=== PATIENT | female | born 1990 | race Caucasian/White ===

== ENCOUNTER 2022-07-21 14:20 | Outpatient (CLI) | payer OTHER, SELFPAY ==
[2022-07-21 18:10] LABS: Hepatitis B Surface Antigen* Negative (Negative)
[2022-07-21 18:19] LABS: HIV 1/2/P24 Combo Screen* Negative (Negative)
[2022-07-21 18:28] LABS: Hepatitis C Virus Antibody* Negative (Negative)
[2022-07-21 18:46] LABS: Chlamydia DNA Amplified* NOT DETECTED (No Detected); GC DNA Amplified* NOT DETECTED (No Detected)
[2022-07-23 17:15] LABS: Rubella Antibody IgG 14.9 IU/mL
[2022-07-23 18:37] LABS: Rapid Plasma Reagin (RPR) Non Reactive (Non Reactive)
== END 2022-07-21 14:21 | disposition home or self-care (01) ==
PROVIDERS: Visit Provider Advanced Practice Midwife
DX: Z34.91 Encounter for supervision of normal pregnancy, unspecified, first trimester (principal); Z3A.09 9 weeks gestation of pregnancy
CPT/HCPCS: 76817; 86592; 86703; 86762; 86787; 86803; 86850; 86900; 86901; 87086; 87340; 87491; 87591

== ENCOUNTER 2022-08-15 09:32 | Observation (INO) | payer OTHER, SELFPAY ==
[2022-08-15] VITALS (21 sets, daily range): BP systolic 108–129; BP diastolic 55–82; PULSE 67–106; RESP 16–18; TEMP 36.7–37.2; O2SAT 97–100; BMI 24.0; BMI 23.7
[2022-08-15 10:05] LABS: Appearance Urine Clear (Clear); Bilirubin Urine Negative (Negative); Blood Urine 2+ (Negative); Color Urine Yellow (Yellow); Glucose Urine Negative (Negative); Ketones Urine 1+ (Negative); Leukocyte Esterase Urine Negative (Negative); Nitrite Urine Negative (Negative); Protein Urine Negative (Negative)
--- NOTE | 2022-08-15 10:14 | ED.ABDPAIN ---
HPI - Abdominal Pain General Time Seen by Provider: 10:15 Date Seen: 08/15/22 Chief Complaint: Abdominal Pain Stated Complaint: 14 wks /lower right abdominal pain Time Seen by Provider: 08/15/22 10:14 Source: patient, RN notes reviewed and old records reviewed Mode of arrival: ambulatory Limitations: no limitations History of Present Illness HPI narrative: Patient is a very pleasant 32-year-old female with history of rheumatoid arthritis, prednisone p.r.n. as well as history of PE who comes to the emergency room with right lower quadrant pain. Patient is approximately 14 weeks with an EDC of 02/19/2023 and an LMP of 05/15/2022. Patient notes the onset of sharp discomfort in her right lower quadrant last evening. It was associated with some nausea and lightheadedness but no fever or chills. Patient notes that she has been struggling with some constipation but had a normal bowel movement yesterday. She denies any recent trauma or falls and has not had any ovarian cysts in the past. She denies urinary tract symptoms. She notes pain improves when standing up and is worse when lying down. She notes some spotting last evening and shows me a mucus see bloody item on a piece of toilet paper. She has not had any bleeding today. She denies fever or chills cough cold or congestion. She has not taken anything for pain at this point. Patient notes radiation of the discomfort into her back but not down her legs. Related Data Home Medications Medication Instructions Recorded Confirmed prednisolone sodium phosphate 10 10 mg PO .PRN 07/21/22 08/15/22 mg disintegrating tablet Previous Rx's Medication Instructions Recorded enoxaparin 40 mg/0.4 mL 40 mg (0.4 mL) subcut Q24H #60 07/28/22 subcutaneous syringe syringes Allergies Allergy/AdvReac Type Severity Reaction Status Date / Time No Known Drug Allergies Allergy Verified 08/15/22 13:13 Review of Systems Status of ROS Reports: 10 or more systems reviewed and unremarkable except as noted in History and below Const Denies: fever or fatigue ENMT Denies: throat pain Cardio Denies: chest pain, edema, swelling of feet/ankles or shortness of breath with exertion Resp Denies: shortness of breath or cough GI Reports: abdominal pain (Right lower quadrant), nausea and constipation; Denies: vomiting or diarrhea Denies: painful urination, urinary frequency or urinary urgency Musculo Reports: back pain (Radiation) Neuro Denies: headache Endo Denies: fatigue PFSH PFSH Medical History History of abnormal cervical Papanicolaou smear Pulmonary embolism Surgical History H/O breast augmentation Family History Mother High blood pressure Depression Father High blood pressure Diabetes Rheumatoid arteritis Social History Are you following a diet prescribed by a doctor: No Are you following a special diet: No Highest level of school completed/degree received: Master's degree Physical activity type: other Physical activity type details: volleyball Smoking Status: Never smoker Second hand tobacco smoke exposure: No Non-prescribed substance use: denies use Caffeine: Yes (up to 2 cups of coffee a day) Little interest or pleasure in doing things: not at all Feeling down, depressed, or hopeless: not at all Exam Narrative: Exam Narrative: Patient is alert and oriented. Nontoxic in appearance. EOM is full. Neck is supple. Oral cavity with moist mucous membranes. Heart is with regular rate and rhythm and lungs are clear in all lung guerra. No tenderness with percussion over the CVA bilaterally or lower back Abdomen is soft nontender there is no rebound tenderness. Movement of the right leg including internal external rotation as well as hip flexion yields no discomfort. Const: Vital Signs, click to edit/add: Vital Signs - 24 hr 08/15/22 09:50 08/15/22 09:54 08/15/22 09:55 Temperature 98.6 F Pulse Rate 106 H 93 Pulse Rate [Right Pulse Oximeter] 95 Respiratory Rate 18 Blood Pressure 117/82 Blood Pressure [Ri ght Upper Arm] 123/68 Pulse Oximetry 99 99 97 Oxygen Delivery Me thod Room Air 08/15/22 09:56 08/15/22 10:00 08/15/22 10:02 Temperature Pulse Rate 91 79 75 Pulse Rate [Right Pulse Oximeter] Respiratory Rate Blood Pressure 123/68 112/74 Blood Pressure [Ri ght Upper Arm] Pulse Oximetry 100 98 99 Oxygen Delivery Me thod 08/15/22 10:03 08/15/22 10:30 08/15/22 10:31 Temperature Pulse Rate 78 77 80 Pulse Rate [Right Pulse Oximeter] Respiratory Rate Blood Pressure 115/74 Blood Pressure [Ri ght Upper Arm] Pulse Oximetry 98 99 99 Oxygen Delivery Me thod 08/15/22 10:32 08/15/22 12:50 08/15/22 12:51 Temperature Pulse Rate 70 75 80 Pulse Rate [Right Pulse Oximeter] Respiratory Rate Blood Pressure 122/74 Blood Pressure [Ri ght Upper Arm] Pulse Oximetry 99 98 97 Oxygen Delivery Me thod Documenting provider has reviewed patient's vital signs: yes Course Course Hospital Course: At this time differential diagnosis includes but is not limited to ectopic , miscarriage, UTI, ureteral colic, nephrolithiasis, appendicitis, colitis, ovarian cyst, ovarian torsion, round ligament pain. Will place an IV give 1 L of normal saline. Patient has been receptive to morphine 2 mg and Zofran 4 mg for discomfort and nausea. Will obtain pelvic ultrasound as well as CBC, comprehensive panel, CRP, urinalysis, amylase, lipase. Reevaluation(s) Reevaluation #1: Patient noted to have some mild relief with morphine. Unfortunately I do share with patient and her that the ultrasound does show a demise measuring approximately 10 weeks. This is confirmed by Radiology. Consultations Consultation #1: I have concerns regarding leukocytosis greater than 18,000. Certainly obstetrical patients will have a physiological leukocytosis but this seems markedly high. This is also associated with a CRP of 2.7. I had the pleasure of speaking with VALERIE Marques. She does agree that these values do not match a miscarriage. Would proceed with CT of the abdomen which I have now ordered. I do speak to patient and her in regards to my worries that there is further concern in regards to her discomfort. I do order Dilaudid 0.5 mg IV at this time but patient declines. Vital Signs Vital signs: Initial Vital Signs Temperature 98.6 F 08/15/22 09:50 Temperature Source Temporal Artery Scan 08/15/22 09:50 Pulse Rate 95 08/15/22 09:50 Respiratory Rate 18 08/15/22 09:50 Blood Pressure 123/68 08/15/22 09:50 Blood Pressure Mean 86 08/15/22 09:50 Blood Pressure Position Sitting 08/15/22 09:50 Pulse Oximetry 99 08/15/22 09:50 Oxygen Delivery Method 08/15/22 09:50 Vital Signs Temperature 98.6 F 08/15/22 09:50 Pulse Rate 95 08/15/22 09:50 Respiratory Rate 18 08/15/22 09:50 Blood Pressure 123/68 08/15/22 09:50 Pulse Oximetry 99 08/15/22 09:50 Oxygen Delivery Method 08/15/22 09:50 Temperature 98.6 F 08/15/22 09:50 Pulse Rate 80 08/15/22 12:51 Respiratory Rate 18 08/15/22 09:50 Blood Pressure 122/74 08/15/22 12:50 Pulse Oximetry 97 08/15/22 12:51 Oxygen Delivery Method 08/15/22 09:50 MDM - Abdominal Pain MDM Narrative Medical decision making narrative: 1. demise-fetus measuring 10+ weeks but patient is technically 14 weeks at this point. She did have a small amount of blood last night and earlier with the ultrasound but not has not passed fetus at this time. OBGYN consults and does speak to patient about a D&C verses admission for Cytotec placement. Patient decides on the latter. Therefore have admitted her to outpatient observation to the OB floor under the care of 2. Abdominal pain -improved with small amount of morphine. Patient declines any more pain medication. 3. History of PE at the age of 16-unknown cause per patient. She denies a history of lupus or other autoimmune diseases. However does have a history of rheumatoid arthritis. 4. Disposition-admission to OB floor. Medical Records Attestation: I reviewed the patient's medical records. Lab Data Attestation: I reviewed the patient's lab results. Labs: Lab Results 08/15/22 08/15/22 08/15/22 Range/Units 09:58 11:40 11:40 WBC 18.11 H (4.50-11.00) K/uL RBC 4.18 (4.00-5.20) m/uL Hgb 12.7 (12.0-16.0) gm/dL Hct 38.1 (33.0-51.0) % MCV 91 (80-100) fL MCH 30 (26-34) pg MCHC 33 (32-36) gm/dL RDW Coeff of Garth 13.1 (11.5-15.5) % Plt Count 297 (140-440) K/uL Neut % (Auto) 85.4 H (42.0-72.0) % Lymph % (Auto) 8.6 L (20-44) % Motley % (Auto) 5.3 (0.0-11.0) % Eos % (Auto) 0.3 (0.0-7.0) % Baso % (Auto) 0.2 (0.0-3.0) % Neut # (Auto) 15.50 H (1.7-7.0) K/uL Lymph # (Auto) 1.60 (0.90-2.90) K/uL Motley # (Auto) 1.00 H (0.00-0.90) K/UL Eos # (Auto) 0.10 (0.00-0.50) K/uL Baso # (Auto) 0.00 (0.00-0.30) K/uL Abs Immat Gran (auto) 0.00 (0.00-0.30) K/uL Imm/Tot Granulo (auto) 0.2 % Sodium 134 L (135-149) mmol/L Potassium 3.7 (3.6-5.1) mmol/L Chloride 102 (96-114) mmol/L Carbon Dioxide 23 (20-32) mmol/L BUN 11 (5-24) mg/dL Creatinine 0.5 (0.5-1.5) mg/dL Estimated Creat Clear 178.87 Estimated GFR 127 ml/min Glucose 96 (60-115) mg/dL Calcium 8.8 (8.4-10.6) mg/dL Total Bilirubin 0.6 (0.1-1.5) mg/dL AST 20 (12-35) U/L ALT 14 (4-35) U/L Alkaline Phosphatase 46 (40-150) U/L C-Reactive Protein 2.7 H (0.5-1.0) mg/dL Total Protein 7.5 (6.0-8.3) g/dL Albumin 4.5 (3.3-5.0) g/dL Amylase 61 (18-89) U/L Lipase 35 (23-300) U/L Urine Color Yellow (Yellow) Urine Appearance Clear (Clear) Urine pH 7.0 (5.0-8.5) Ur Specific [place] 1.020 (1.000-1.030) Urine Protein Negative (Negative) Urine Glucose (UA) Negative (Negative) Urine Ketones 1+ A (Negative) Urine Blood 2+ A (Negative) Urine Nitrite Negative (Negative) Urine Bilirubin Negative (Negative) Urine Urobilinogen 1.0 (0.2-1.0) Ur Leukocyte Esterase Negative (Negative) Urine RBC 0-2 (0-2) Urine WBC 0-2 (0-5) Ur Squamous Epith Cells Few (None-Few) Urine Bacteria Few A (None) SARS-CoV-2 (PCR) (Negative) 08/15/22 Range/Units 13:01 WBC (4.50-11.00) K/uL RBC (4.00-5.20) m/uL Hgb (12.0-16.0) gm/dL Hct (33.0-51.0) % MCV (80-100) fL MCH (26-34) pg MCHC (32-36) gm/dL RDW Coeff of Garth (11.5-15.5) % Plt Count (140-440) K/uL Neut % (Auto) (42.0-72.0) % Lymph % (Auto) (20-44) % Motley % (Auto) (0.0-11.0) % Eos % (Auto) (0.0-7.0) % Baso % (Auto) (0.0-3.0) % Neut # (Auto) (1.7-7.0) K/uL Lymph # (Auto) (0.90-2.90) K/uL Motley # (Auto) (0.00-0.90) K/UL Eos # (Auto) (0.00-0.50) K/uL Baso # (Auto) (0.00-0.30) K/uL Abs Immat Gran (auto) (0.00-0.30) K/uL Imm/Tot Granulo (auto) % Sodium (135-149) mmol/L Potassium (3.6-5.1) mmol/L Chloride (96-114) mmol/L Carbon Dioxide (20-32) mmol/L BUN (5-24) mg/dL Creatinine (0.5-1.5) mg/dL Estimated Creat Clear Estimated GFR ml/min Glucose (60-115) mg/dL Calcium (8.4-10.6) mg/dL Total Bilirubin (0.1-1.5) mg/dL AST (12-35) U/L ALT (4-35) U/L Alkaline Phosphatase (40-150) U/L C-Reactive Protein (0.5-1.0) mg/dL Total Protein (6.0-8.3) g/dL Albumin (3.3-5.0) g/dL Amylase (18-89) U/L Lipase (23-300) U/L Urine Color (Yellow) Urine Appearance (Clear) Urine pH (5.0-8.5) Ur Specific [place] (1.000-1.030) Urine Protein (Negative) Urine Glucose (UA) (Negative) Urine Ketones (Negative) Urine Blood (Negative) Urine Nitrite (Negative) Urine Bilirubin (Negative) Urine Urobilinogen (0.2-1.0) Ur Leukocyte Esterase (Negative) Urine RBC (0-2) Urine WBC (0-5) Ur Squamous Epith Cells (None-Few) Urine Bacteria (None) SARS-CoV-2 (PCR) Negative SARS-CoV-2 (Negative) Imaging Data CT scan - abdomen: Attestation: I have reviewed the pertinent imaging results. My impression: Increased stool throughout abdomen. Questionable stranding around the area of the cecum. Radiologist's impression: The lung bases are clear. The liver is enlarged with mild hepatic steatosis and hepatomegaly. There is no focal abnormality. The portal vein is patent. The gallbladder is unremarkable without evidence of radiopaque calculus. There is no significant common biliary ductal dilatation or abrupt cut off. The spleen is normal in enhancement and size. The stomach and duodenum are grossly unremarkable. The pancreas is normal in enhancement without significant atrophy. The adrenal glands are unremarkable. There are bilateral extrarenal pelves with demonstration of mild prominence of the bilateral collecting systems without evidence of radiopaque calculus. There is moderate stool seen throughout the colon with minimal distal colonic diverticulosis without evidence of diverticulitis. The appendix is unremarkable. There is no significant mesenteric, retroperitoneal, or pelvic sidewall lymph nodes. The aorta is nonaneurysmal. There is no significant atherosclerotic disease appreciated. There is an enlarged uterus with demonstration of a gestational sac. Known pole is not well visualized. There is a moderately heterogeneous appearance of the myometrium. Engorged pelvic vasculature is appreciated likely representing a component of pelvic congestion. There is no free fluid or free air. The anterior abdominal wall is intact without significant hernias. The lumbar vertebral body heights are grossly maintained with minimal endplate Schmorl`s defects. There is mild straightening of the normal lumbar lordosis without evidence of significant spondylolisthesis. Impression: Normal appendix. Moderate stool seen throughout the colon. Bilateral extrarenal pelves with trace prominence of the collecting system without evidence of obstructive calculus. Moderately enlarged uterus commensurate with history of and known intrauterine demise. No evidence of acute pelvic abnormality. Moderately engorged pelvic veins which may represent sequela of and/or a component of pelvic congestion syndrome. Otherwise, no definite acute intra-abdominal abnormalities appreciated. Pelvic ultrasound: Attestation: I have reviewed the pertinent imaging results. Radiologist's impression: Intrauterine gestation with crown-rump length measuring 3. 7 cm which would correspond to 10 weeks 4 days. No cardiac activity detected one previously demonstrated. Gestational sac located within the lower uterine segment. Anterior fibroid measuring 4.1 x 2.5 x 3.7 centimeters. Right ovary measuring 3 x 2.1 x 2.7 centimeters left ovary measures 2 x 1.1 centimeters and appears unremarkable adjacent mildly complex cystic lesion within the right adnexum measuring 1.5 x 1.1 x 0.9 centimeter to be related to parovarian cyst IMPRESSION: Intrauterine gestation with crown-rump length measuring 3.7 centimeters which would correspond to 10 weeks 4 days. No cardiac activity detected when previously demonstrated. The gestational sac is located in the lower uterine segment. Findings consistent with demise. 1.5 x 1.1 x 0.9 centimeter complex right adnexal lesion could be related to paraovarian complex cyst. This could be followed up in 8-12 weeks. Discharge Plan Discharge Clinical Impression: demise before 20 weeks with retention of fetus, Abdominal pain Patient Disposition: Admitted As Inpatient Condition: Improved
--- NOTE | 2022-08-15 10:26 | CRLHL7_ITS ---
For Patients: As a result of the Century Cures Act, medical imaging exams and procedure reports are released immediately into your electronic medical record. You may view this report before your referring provider. If you have questions, please contact your health care provider. INDICATION: Fourteen weeks gestation right lower quadrant pain Comparison ultrasound 07/22/2022 TECHNIQUE: Real-time olivia-scale imaging of the pelvis was performed. FINDINGS: Intrauterine gestation with crown-rump length measuring 3. 7 cm which would correspond to 10 weeks 4 days. No cardiac activity detected one previously demonstrated. Gestational sac located within the lower uterine segment. Anterior fibroid measuring 4.1 x 2.5 x 3.7 centimeters. Right ovary measuring 3 x 2.1 x 2.7 centimeters left ovary measures 2 x 1.1 centimeters and appears unremarkable adjacent mildly complex cystic lesion within the right adnexum measuring 1.5 x 1.1 x 0.9 centimeter to be related to parovarian cyst IMPRESSION: Intrauterine gestation with crown-rump length measuring 3.7 centimeters which would correspond to 10 weeks 4 days. No cardiac activity detected when previously demonstrated. The gestational sac is located in the lower uterine segment. Findings consistent with demise. 1.5 x 1.1 x 0.9 centimeter complex right adnexal lesion could be related to paraovarian complex cyst. This could be followed up in 8-12 weeks. Dictated by Rosa Gutiérrez MD @ 08/15/2022 11:58:50 AM (Electronically Signed)
[2022-08-15 10:29] LABS: Bacteria Urine Few; RBC Urine 0-2 (0-2); Squamous Epithelial Cell Urine Few (None-Few); WBC Urine 0-2 (0-5)
[2022-08-15] MEDS: 0.9 % SODIUM CHLORIDE 1000 ml 1,000 ML IV (11:44)
[2022-08-15] MEDS: ONDANSETRON 2 MG/ML inj 4 MG IVP (11:44)
[2022-08-15] MEDS: MORPHINE 2 MG/ML inj IVP (11:46)
[2022-08-15 11:56] LABS: Basophils Percent Auto 0.2 % (0.0-3.0); Eosinophils Percent Auto 0.3 % (0.0-7.0); Hematocrit 38.1 % (33.0-51.0); Hemoglobin* 12.7 gm/dL (12.0-16.0); Immature Granulocytes Pct Auto 0.2 %; Lymphocytes Percent Auto 8.6 % (20-44); Mean Corpuscular HGB Conc 33 gm/dL (32-36); Mean Corpuscular Hemoglobin 30 pg (26-34); Mean Corpuscular Volume 91 fL (80-100); Monocytes Percent Auto 5.3 % (0.0-11.0); Neutrophils Percent Auto 85.4 % (42.0-72.0); Platelet Count* 297 K/uL (140-440); RDW Coefficient of Variation % 13.1 % (11.5-15.5); Red Blood Count 4.18 m/uL (4.00-5.20); White Blood Count* 18.11 K/uL (4.50-11.00)
[2022-08-15 12:00] LABS: Slide Review Reflex No
[2022-08-15 12:13] LABS: Albumin* 4.5 g/dL (3.3-5.0); Chloride* 102 mmol/L (96-114)
[2022-08-15 12:14] LABS: Potassium* 3.7 mmol/L (3.6-5.1); Sodium* 134 mmol/L (135-149)
[2022-08-15 12:15] LABS: Amylase* 61 U/L (18-89)
[2022-08-15 12:16] LABS: Alkaline Phosphatase* 46 U/L (40-150); Aspartate Amino Transferase* 20 U/L (12-35); Bilirubin Total* 0.6 mg/dL (0.1-1.5); Blood Urea Nitrogen* 11 mg/dL (5-24); Carbon Dioxide* 23 mmol/L (20-32); Creatinine* 0.5 mg/dL (0.5-1.5); Est. Creatinine Clearance* 178.87; Estimated Glomerular Filt Rate 127 ml/min; Lipase* 35 U/L (23-300); Total Protein* 7.5 g/dL (6.0-8.3)
[2022-08-15 12:17] LABS: Alanine Aminotransferase* 14 U/L (4-35); Calcium* 8.8 mg/dL (8.4-10.6); Glucose* 96 mg/dL (60-115)
[2022-08-15 12:19] LABS: C Reactive Protein* 2.7 mg/dL (0.5-1.0)
--- NOTE | 2022-08-15 12:41 | CRLHL7_ITS ---
For Patients: As a result of the 21st Century Cures Act, medical imaging exams and procedure reports are released immediately into your electronic medical record. You may view this report before your referring provider. If you have questions, please contact your health care provider. Indication: Right lower quadrant pain, demise found today, 14 weeks Technique: Volumetric multidetector CT images of the abdomen and pelvis were obtained after the administration of intravenous contrast. 84 cc Isovue 370 low osmolar intravenous contrast Comparison: CT abdomen and pelvis March 04, 2019 Findings: The lung bases are clear. The liver is enlarged with mild hepatic steatosis and hepatomegaly. There is no focal abnormality. The portal vein is patent. The gallbladder is unremarkable without evidence of radiopaque calculus. There is no significant common biliary ductal dilatation or abrupt cut off. The spleen is normal in enhancement and size. The stomach and duodenum are grossly unremarkable. The pancreas is normal in enhancement without significant atrophy. The adrenal glands are unremarkable. There are bilateral extrarenal pelves with demonstration of mild prominence of the bilateral collecting systems without evidence of radiopaque calculus. There is moderate stool seen throughout the colon with minimal distal colonic diverticulosis without evidence of diverticulitis. The appendix is unremarkable. There is no significant mesenteric, retroperitoneal, or pelvic sidewall lymph nodes. The aorta is nonaneurysmal. There is no significant atherosclerotic disease appreciated. There is an enlarged uterus with demonstration of a gestational sac. Known pole is not well visualized. There is a moderately heterogeneous appearance of the myometrium. Engorged pelvic vasculature is appreciated likely representing a component of pelvic congestion. There is no free fluid or free air. The anterior abdominal wall is intact without significant hernias. The lumbar vertebral body heights are grossly maintained with minimal endplate Schmorl`s defects. There is mild straightening of the normal lumbar lordosis without evidence of significant spondylolisthesis. Impression: Normal appendix. Moderate stool seen throughout the colon. Bilateral extrarenal pelves with trace prominence of the collecting system without evidence of obstructive calculus. Moderately enlarged uterus commensurate with history of and known intrauterine demise. No evidence of acute pelvic abnormality. Moderately engorged pelvic veins which may represent sequela of and/or a component of pelvic congestion syndrome. Otherwise, no definite acute intra-abdominal abnormalities appreciated. Please note that all CT scans at this facility use dose modulation, iterative reconstruction, and/or weight-based dosing when appropriate to reduce radiation dose to as low as reasonably achievable. Dictated by Marcellus Urbina MD @ 08/15/2022 2:36:43 PM (Electronically Signed)
[2022-08-15 14:22] LABS: SARS PCR* Negative SARS-CoV-2 (Negative)
[2022-08-15 16:57] LABS: INR 1.05 (0.91-1.10); Prothrombin Time 14.3 Seconds
[2022-08-15 16:58] LABS: Fibrinogen* 545 mg/dL (200-450); Partial Thromboplastin Time* 29 Seconds (23-33)
[2022-08-15] MEDS: PROCHLORPERAZINE 10 MG TABLET 5 MG PO ×2 (17:06→23:18)
[2022-08-15] MEDS: hydrOXYzine pamoate 25 MG CAPSULE 100 MG PO (17:07)
[2022-08-15] MEDS: MORPHINE 10 MG/ML inj IM ×2 (17:07→23:18)
[2022-08-15] MEDS: miSOPROStoL 200 MCG TABLET 400 MCG VAGINAL ×2 (17:08→20:13)
[2022-08-15] MEDS: SODIUM CHLORIDE 0.9 % (FLUSH) 10 ML SYRINGE IVF (17:09)
--- NOTE | 2022-08-15 18:18 | P.OBCN_ITS ---
OB - CN: HPI Date of Consult Time Seen by Provider: 14:00 Date Seen: 08/15/22 Patient: [facility] Patient Consult date: 08/15/22 Requesting Physician: Shila Perez MD Primary Care Provider: Not a Local Provider Consult Narrative Narrative: The patient is a 32 year old G 2 P 1011 at 14 weeks 2 days admitted to [facility] on 08/15/22 for 2nd trimester demise. She presented to the emergency department today due to onset of sharp right lower quadrant pain starting last night, has not improved. She has associated nausea, no vomiting. She denies subjective fever. However, she endorses some chills that she has been experiencing on and off for the last day. She does endorses increased vaginal discharge that is brownish in color. She also notes some uterine cramping as well. While being evaluated in the emergency department, demise is diagnosed and I was consulted by Dr. Sanchez. Patient had a viability scan on 07/21/2022. At that time she had a live IUP measuring 10 weeks 5 days, with cardiac rate noted to be 166 beats per minute. Today, on her transvaginal ultrasound, intrauterine gestation with crown-rump length measuring 3.7 cm corresponding with 10 weeks 4 days noted. However, no cardiac activity detected when previously demonstrated. The gestational sac is located lower uterine segment. Ultrasound finding diagnostic for demise. Of note, patient has white blood cell count of 18k and elevated CRP of 2.7. Due to the unusual distribution of patient's pain, elevated white count and CRP, CT AP was done to rule out appendicitis. Normal appendix on CT scan. Moderate stool seen throughout the colon. Counseling We discussed early loss. Early loss is defined as a nonviable, intrauterine with either an empty gestational sac or a gestational sac containing an embryo or fetus without heart activity within the first 12 6/7 weeks of gestation. I know that she is 14 weeks and 2 days, however, crown-rump length is essentially the same as her 1st OB ultrasound. I suspect that she had a miscarriage around that time and patient has been asymptomatic until now. Patient agrees with this assessment as she has been starting to feel uterine cramping and having abnormal vaginal discharge. We briefly spoke about incidence of early loss. It is common, 10% of all clinically recognized pregnancies. Rate increases to 20% at age 35, 40% by 40 y/o and 80% at the age of 45 y/o. Approximately 50% of all cases of early loss are due to chromosomal. Approximately 80% of all cases of loss occur within the first trimester. The most common risk factors identified among women who have experienced early loss are advanced maternal age and a prior early loss. We discussed the management options for early loss: 1. Expectant management: With adequate time (up to 8 weeks), expectant management is successful in achieving complete expulsion in approximately 80% of women. This is especially successful for patients who are currently having an incomplete . Patient was initially very interested in expectant management as she wants to minimize intervention. However, I discussed with patient that she most likely has been expectantly managing this miscarriage unknowingly for approximately 4 weeks now. Additionally, I suspect that she has an infection brewing due to her symptomatology, elevated white count, and elevated CRP. Thus, I would not be comfortable sending her home to wait, possibly weeks, to pass the . It is possible that her body is trying to pass the currently, given her symptoms. It is reassuring that she has not developed a fever yet. 2. Medical management: Compared with expectant management, medical management of decreases the time to expulsion and increases the rate of complete expulsion without the need for surgical intervention. Patient is most interested in this treatment and it's what I would recommend to help speed up expulsion as well. 3. Surgical management: This is the primary mode of treatment if patient presents in an emergent situation which include hemorrhage (excessive/life threatening bleeding) or infection. It is also used if the previous 2 options fail. Surgical management can be the initial primary treatment as well. Patients who desire this option are those wanting expedited management and minimize risk of retained products of conception or need for further treatment. I reviewed how this procedure is performed. This is done in the operating room with conscious sedation and paracervical block (usually). The cervix is dilated open, a plastic curette is advanced into the uterus and connected to a vacuum. The vacuum then pulls the out of the uterus. All tissue removed from the uterus is sent to the lab for testing to verify that tissue was obtained. I do not recommend cytogenetic testing unless the patient has had more than 1 miscarriage. Ultrasound guidance is not required. Risks with a suction curettage include injury to cervix or uterus 1/400-1/500. Infection in the uterus resulting in endometritis 1/400-1/500. She will receive antibiotics in the IV in the operating room prior to the procedure to prevent infection. Chance of Asherman syndrome resulting in inability to conceive a in the future: 10/2499. Chance of anesthesia complications are extremely rare: Less than 1/100,000 especially with negative personal or family history of anesthesia issues. Expected recovery: Mild cramping after miscarriage/surgery usually controlled with [id number] extra-strength Tylenol and ibuprofen. Only restriction for activity postoperatively/after a miscarriage is nothing vaginally for 2 weeks. She should expect to have some bleeding for 2-4 weeks after surgery. If she continues to have bleeding past 4 weeks I would recommend a follow-up ultrasound to assess for retained products of conception. She would like to avoid surgical management, if possible. All of her questions were answered. After reviewing risk, benefits and alternatives, patients desires to proceed with inpatient admission and misoprostol protocol. She's hoping to pass everything vaginally and really wants to reduce her risk of needing a D&C. Given size of the , I do think she has a good chance of passing everything vaginally. Patient's blood type: A+, Rhogam not needed. History History 2 Elective abortions 0 Para 1 Spontaneous abortions 0 Hx # Term Pregnancies 1 Ectopic pregnancies 0 Hx # Pregnancies 0 Multiple births 0 Number of Living Children 1 Past Pregnancies Del. Date GA/Weeks Outcome Route wt Inf Gender Labor Lgth Anesthesia Location Provider Compli 02/05/21 38 live - full term vaginal delivery 2.92 kg Female 4 hrs 20 min epidural [facility] Medical History (Updated 08/15/22 @ 18:45 by Shila Perez MD) Elevated C-reactive protein (CRP) History of abnormal cervical Papanicolaou smear Pulmonary embolism Surgical History H/O breast augmentation Family History Mother High blood pressure Depression Father High blood pressure Diabetes Rheumatoid arteritis Social History Are you following a diet prescribed by a doctor: No Are you following a special diet: No Highest level of school completed/degree received: Master's degree Physical activity type: other Physical activity type details: volleyball Smoking Status: Never smoker Second hand tobacco smoke exposure: No Non-prescribed substance use: denies use Caffeine: Yes (up to 2 cups of coffee a day) Little interest or pleasure in doing things: not at all Feeling down, depressed, or hopeless: not at all Meds Home Medications and Allergies Home Medications Medication Instructions Recorded Confirmed Type prednisolone sodium phosphate 10 10 mg PO .PRN 07/21/22 08/15/22 History mg disintegrating tablet Allergies Allergy/AdvReac Type Severity Reaction Status Date / Time No Known Drug Allergies Allergy Verified 08/15/22 13:13 OB - H&P: Exam Physical Exam: Vital signs: Temp Pulse Resp BP Pulse Ox O2 Del Method 98.9 F 75 16 129/79 100 08/15/22 17:20 08/15/22 17:18 08/15/22 17:20 08/15/22 17:18 08/15/22 15:30 08/15/22 09:50 Narrative: Physical exam: General: Patient is very tearful, appropriately so Psych: Alert and oriented x3, full affect HEENT: Normocephalic, atraumatic Neck: No cervical adenopathy, no thyromegaly Heart: Regular rate and rhythm, no murmur rub or gallop Lungs: Clear to auscultation bilaterally Abdomen: fundal tenderness. She states that this was where she's feeling most of the cramping. No rebound or guarding OB - Results Labs Labs: Short CBC 08/15/22 Range/Units 11:40 WBC 18.11 H (4.50-11.00) K/uL Hgb 12.7 (12.0-16.0) gm/dL Hct 38.1 (33.0-51.0) % Plt Count 297 (140-440) K/uL BMP 08/15/22 11:40 Sodium 134 L Potassium 3.7 Chloride 102 Carbon Dioxide 23 BUN 11 Creatinine 0.5 Glucose 96 Calcium 8.8 Liver Function 08/15/22 Range/Units 11:40 Total Bilirubin 0.6 (0.1-1.5) mg/dL AST 20 (12-35) U/L ALT 14 (4-35) U/L Alkaline Phosphatase 46 (40-150) U/L Albumin 4.5 (3.3-5.0) g/dL Urine 08/15/22 Range/Units 09:58 Urine Color Yellow (Yellow) Urine Appearance Clear (Clear) Urine pH 7.0 (5.0-8.5) Ur Specific [place] 1.020 (1.000-1.030) Urine Protein Negative (Negative) Urine Glucose (UA) Negative (Negative) OB - CN: A/P Assessment and Plan (1) demise before 20 weeks with retention of fetus: Status: Acute (2) Abdominal pain: Status: Acute (3) Elevated WBC count: Status: Acute Plan - Admit to inpatient for misoprostol protocol for management of demise. Currently stable with scant vaginal bleeding. - Misoprostol 400 mcg Q3H ordered. Max dose of 5. - Will give Gent/Clinda as I suspect early infection
[2022-08-15] MEDS: CLINDAMYCIN 900 MG/50 ML-D5W IVPB (18:34)
[2022-08-15 18:54] LABS: Amphetamine Screen Urine Negative (Negative); Barbiturate Screen Urine Negative (Negative); Benzodiazepines Screen Urine Negative (Negative); Cannabinoid Screen Urine Negative (Negative); Cocaine Screen Urine Negative (Negative); Methadone Screen Urine Negative (Negative); Methamphetamines Screen Urine Negative (Negative); Oxycodone Screen Urine Negative (Negative); Phencyclidine Screen Urine Negative (Negative); Tricyclic Antidepressant Urine Negative (Negative)
[2022-08-15 19:01] LABS: Opiate Screen Urine POSITIVE (Negative)
[2022-08-16] MEDS: CLINDAMYCIN 900 MG/50 ML-D5W IVPB (02:27)
[2022-08-16 02:31] VITALS: RESP 16; TEMP 36.9
[2022-08-16 02:32] VITALS: BP 105/58; PULSE 81
[2022-08-16 06:21] VITALS: BP 103/62; PULSE 71; RESP 16; TEMP 36.9
[2022-08-16 06:23] VITALS: PULSE 83; O2SAT 99
[2022-08-16] MEDS: PROCHLORPERAZINE 10 MG TABLET 5 MG PO (06:36)
[2022-08-16] MEDS: LACTATED RINGERS 1000 ML IV (06:45)
[2022-08-16] MEDS: ACETAMINOPHEN 500 MG TABLET 1000 MG PO (08:10)
[2022-08-16 08:13] LABS: Basophils Percent Auto 0.2 % (0.0-3.0); Eosinophils Percent Auto 0.9 % (0.0-7.0); Hematocrit 29.1 % (33.0-51.0); Hemoglobin* 9.8 gm/dL (12.0-16.0); Immature Granulocytes Pct Auto 0.2 %; Lymphocytes Percent Auto 7.8 % (20-44); Mean Corpuscular HGB Conc 34 gm/dL (32-36); Mean Corpuscular Hemoglobin 31 pg (26-34); Mean Corpuscular Volume 93 fL (80-100); Monocytes Percent Auto 5.8 % (0.0-11.0); Neutrophils Percent Auto 85.1 % (42.0-72.0); Platelet Count* 271 K/uL (140-440); RDW Coefficient of Variation % 13.2 % (11.5-15.5); Red Blood Count 3.13 m/uL (4.00-5.20); White Blood Count* 16.58 K/uL (4.50-11.00)
[2022-08-16 08:24] LABS: Slide Review Reflex No
--- NOTE | 2022-08-16 08:32 | P.DS_ITS ---
DS: Providers Provider Date Seen: 08/16/22 Date of admission: 08/15/22 15:16 Primary care physician: Not a Local Provider Admitting Clinician: Shila Perez MD Attending Physician on discharge: Ciera Joseph CNM Date of Discharge: 08/16/22 DS: Diagnosis Discharge Diagnosis (1) Foetal demise, less than 22 weeks, delivered, current hospitalisation: Status: Acute (2) Elevated WBC count: Status: Acute (3) History of pulmonary embolus (PE): Status: Acute Exam Narrative: Exam Narrative: GENERAL APPEARANCE:? normal affect, alert, no distress? MOOD:? appropriate? CHEST:? clear to auscultation HEART:? regular rate and rhythm? ABDOMEN:? soft, non-tender the uterine fundus is Midline and is appropriate for the stage of recovery.? PERINEUM:? exam deferred EXTREMITIES:? normal and no edema? Const: Vital Signs, click to edit/add: Vital Signs - 24 hr 08/15/22 09:50 08/15/22 09:54 08/15/22 09:55 Temperature 98.6 F Pulse Rate 106 H 93 Pulse Rate [Right Pulse Oximeter] 95 Respiratory Rate 18 Blood Pressure 117/82 Blood Pressure [Ri ght Upper Arm] 123/68 Pulse Oximetry 99 99 97 Oxygen Delivery Me thod Room Air 08/15/22 09:56 08/15/22 10:00 08/15/22 10:02 Temperature Pulse Rate 91 79 75 Pulse Rate [Right Pulse Oximeter] Respiratory Rate Blood Pressure 123/68 112/74 Blood Pressure [Ri ght Upper Arm] Pulse Oximetry 100 98 99 Oxygen Delivery Me thod 08/15/22 10:03 08/15/22 10:30 08/15/22 10:31 Temperature Pulse Rate 78 77 80 Pulse Rate [Right Pulse Oximeter] Respiratory Rate Blood Pressure 115/74 Blood Pressure [Ri ght Upper Arm] Pulse Oximetry 98 99 99 Oxygen Delivery Me thod 08/15/22 10:32 08/15/22 12:50 08/15/22 12:51 Temperature Pulse Rate 70 75 80 Pulse Rate [Right Pulse Oximeter] Respiratory Rate Blood Pressure 122/74 Blood Pressure [Ri ght Upper Arm] Pulse Oximetry 99 98 97 Oxygen Delivery Me thod 08/15/22 15:30 08/15/22 15:30 08/15/22 15:30 Temperature Pulse Rate 75 Pulse Rate [Right Pulse Oximeter] Respiratory Rate Blood Pressure 121/77 Blood Pressure [Ri ght Upper Arm] Pulse Oximetry 100 [facility] 08/[facility] 17:18 08/15/22 17:18 08/15/22 18:30 Temperature 98.6 F Pulse Rate 75 Pulse Rate [Right Pulse Oximeter] Respiratory Rate 18 Blood Pressure 129/79 Blood Pressure [Ri ght Upper Arm] Pulse Oximetry [facility] 08/15/22 20:11 08/15/22 23:26 08/16/22 02:32 Temperature Pulse Rate 75 85 81 Pulse Rate [Right Pulse Oximeter] Respiratory Rate Blood Pressure 110/75 108/55 L 105/58 L Blood Pressure [Ri ght Upper Arm] Pulse Oximetry [facility] 08/16/22 06:21 08/16/22 06:23 08/15/22 15:45 Temperature 98.1 F Pulse Rate 71 Pulse Rate [Right Pulse Oximeter] Respiratory Rate 18 Blood Pressure 103/62 Blood Pressure [Ri ght Upper Arm] Pulse Oximetry 99 Oxygen Delivery [facility] 08/15/22 17:20 08/15/22 20:00 08/15/22 23:30 Temperature 98.9 F 98.4 F 98.3 F Pulse Rate Pulse Rate [Right Pulse Oximeter] Respiratory Rate 16 16 16 Blood Pressure Blood Pressure [Ri ght Upper Arm] Pulse Oximetry [facility] 08/16/22 02:31 08/16/22 06:21 Temperature 98.4 F 98.5 F Pulse Rate Pulse Rate [Right Pulse Oximeter] Respiratory Rate 16 16 Blood Pressure Blood Pressure [Ri ght Upper Arm] Pulse Oximetry [facility] - DS: Summary Hospital Course Hospital Course: The patient is a 32 year old G 2 P 1 at 14.3 weeks gestation that was admitted to the Center on 08/15/22 for a demise with elevated WBCs. She present to the ED with abdominal pain and was found to have no activity and measuring 10 weeks. She had an elevated WBC count and chills on admission. She was given Cytotec for medical management and delivered around 0000 this morning. She received 2 doses of Clindamycin IV. She had an uncomplicated vaginal delivery. the patient has done well. She is feeling ok mentally at this time. States that yesterday was difficult but feeling better today. Encouraged grief counseling and to reach out with any mood concerns. Hgb 9.6. Prescription for iron supplementation sent. Peripartum Data Infant delivery method: Vaginal Laceration description: None Episiotomy description: None complications: pelvic infection [place] Gender: Ambiguous Discharge Plan: demise Status at Discharge Functional status at discharge: independent ambulation Overall status at discharge: patient is progressing back to baseline Time Spent with Patient Time attestation: Total time spent providing and/or coordinating discharge services: Discharge Plan Discharge Disposition: Home, Self-Care Date of Admission: 08/15/22 15:16 Attending Provider on Discharge: Sera Joseph Primary Care Provider: Provider,Not a Local Condition: Improved Anticipated Discharge Date/Time: 08/16/22 10:00 Discharge Medications: New ferrous sulfate 325 mg (65 mg iron) tablet,delayed release (DR/EC) 325 mg PO DAILY Qty: 60 0RF ibuprofen 600 mg tablet 600 mg PO Q6H PRNQty: 90 0RF Continued prednisolone sodium phosphate 10 mg tablet,disintegrating 10 mg PO .PRN enoxaparin 40 mg/0.4 mL syringe 40 mg subcut Q24H Qty: 60 2RF Discharge Orders: Discharge Order (Routine); Ordered 08/16/22 Ordered By: Sera Joseph Patient Education: OB Loss Additional Instructions: Discharge instructions were reviewed with the patient including signs and symptoms of infection and home going medications.?? ? Do not drive while taking pain meds.?? ? Symptoms to report to doctor:? -Bleeding that saturates more than one pad per hour? -Passing clots larger than the size of a golf ball? -Pain not relieved by prescribed medication? -Fever above 100.4 degrees Fahrenheit? -A foul vaginal odor? -Difficulty in emotions, mood and functions? -Thoughts of hurting yourself ? -Painful, reddened area in your breast? -Any drainage, redness or tenderness in your IV/epidural site? -Severe headache that doesn't improve after taking medications? -Changes in vision, including temporary loss of vision, blurred vision, and/or light sensitivity? -Upper abdominal pain (usually under ribs on the right side)? -Decrease in urination or painful, frequent urinating? -Chest pain? -Shortness of breath? -Tenderness or pain with redness and/swelling in the calf(s) of your leg? ?? Follow Up in clinic in 2 and 6 weeks.? Activity Level: Activity as Tolerated Discharge Diet: Regular Follow Up Appointments: Sera Joseph CNM [Certified Nurse [employer] Parts Salesperson] - Provider,Not a Local [Primary Care Provider] - Forms: MyHealth Info Instructions Discharge Comments: Stable Day 1.
[2022-08-16 10:33] VITALS: BP 110/57; PULSE 100; RESP 60; TEMP 36.9
[2022-08-18 08:36] LABS: Cardiolipin Antibody IgA <10 APL (<=11); Cardiolipin Antibody IgG <10 GPL (<=14); Cardiolipin Antibody IgM 40 MPL (<=12)
[2022-08-19 01:03] LABS: B2Glycoprotein 1, IgG Antibody <10 SGU (<=20); B2Glycoprotein 1, IgM Antibody <10 SMU (<=20)
[2022-08-30 23:33] LABS: Prothrombin Time 13.8 sec (12.0-15.5); dRVVT Screen 41 sec (33-44)
== END 2022-08-16 10:35 | disposition home or self-care (01) ==
LOC: ED 14:51 → OB 21:14
PROVIDERS: Admitting Provider Obstetrics & Gynecology; Emergency Provider Family Medicine; Visit Provider Obstetrics & Gynecology
DX: O02.1 Missed abortion (principal); Z3A.14 14 weeks gestation of pregnancy; D72.829 Elevated white blood cell count, unspecified; Z86.711 Personal history of pulmonary embolism; R68.83 Chills (without fever); R11.0 Nausea; N89.8 Other specified noninflammatory disorders of vagina; R25.2 Cramp and spasm; R10.31 Right lower quadrant pain
CPT/HCPCS: 36415; 59200; 74177; 76801; 76817; 76856; 80053; 80306; 81001; 82150; 83690; 85025; 85384; 85460; 85610; 85613; 85730; 86140; 86146; 86147; 86850; 86900; 86901; 87086; 87635; 88184; 88305; 96361; 96365; 96375; 99285; A9270; G0378; J1580; J2270; J2405; J7030; J7120; Q9967; S0077

== ENCOUNTER 2022-08-18 15:36 | Day surgery (SDC) | payer OTHER, SELFPAY ==
[2022-08-18] VITALS (7 sets, daily range): BP systolic 100–121; BP diastolic 49–80; PULSE 62–96; RESP 12–18; TEMP 36.5–37.6; O2SAT 98–100; BMI 24.0
--- NOTE | 2022-08-18 16:27 | ED.GENADULT ---
HPI - General Adult General Chief complaint: Vaginal Bleeding Stated complaint: Passed Something Vaginally - Miscarriage Time Seen by Provider: 08/18/22 16:12 Source: patient Mode of arrival: ambulatory Limitations: no limitations History of Present Illness HPI narrative: 32-year-old G2 para 1 who was admitted to our hospital for miscarriage on Monday which is 4 days prior to presentation. Around midnight that night, after Cytotec induction, she did deliver a fetus consistent with a 10 week gestation. She was treated with IV antibiotics for 2 doses because of elevated white count. She was discharged with a hemoglobin of 9.6 and instructed on appropriate follow-up. Patient was supposed to start her Lovenox upon discharge but had not yet made it to the pharmacy to pick this up. She has a remote history of pulmonary embolism and does have a history of rheumatoid arthritis as well. She does take prednisone for rheumatoid arthritis flares but has not had any in the last 2 weeks. She does notice pelvic pressure. She began taking a stool softener because she had not yet had a bowel movement on on Monday. She was able to have a bowel movement today and when she did she also passed a large globular substance vaginally. She does bring it in for inspection today. She has been feeling a little bit weak and lightheaded which she distributed to blood loss. She has a lot of cramping and is feeling a lot of pelvic tenderness. No noted fevers. She has been taking Tylenol and ibuprofen for the pelvic cramping and it does seem to help. No severe pain. No chest pain, no dyspnea. No swelling in her legs. I inspect the clot that she has brought and is baseball size and does appear consistent with placental tissue rather than a standard blood clot. Past medical history notable for rheumatoid arthritis and prior pulmonary embolism. Home medications currently just an iron supplement. She also has access to prednisone when needed and is prescribed Lovenox though she had not yet started this. Socially she is a nonsmoker with no significant infection risk factors. No recent pertinent travel. No history of anesthesia complications, has undergone a breast augmentation in the past. Related Data Home Medications Medication Instructions Recorded Confirmed prednisolone sodium phosphate 10 10 mg PO .PRN 07/21/22 08/15/22 mg disintegrating tablet Previous Rx's Medication Instructions Recorded enoxaparin 40 mg/0.4 mL 40 mg (0.4 mL) subcut Q24H #60 10/20/22 subcutaneous syringe syringes ferrous sulfate 325 mg (65 mg 325 mg PO DAILY #60 tabs 08/16/22 iron) tablet,delayed release ibuprofen 600 mg tablet 600 mg PO Q6H PRN #90 tabs 08/16/22 Allergies Allergy/AdvReac Type Severity Reaction Status Date / Time No Known Drug Allergies Allergy Verified 08/18/22 15:54 PFSH PFSH Medical History Elevated C-reactive protein (CRP) History of abnormal cervical Papanicolaou smear Pulmonary embolism Surgical History H/O breast augmentation Family History Mother High blood pressure Depression Father High blood pressure Diabetes Rheumatoid arteritis Social History Are you following a diet prescribed by a doctor: No Are you following a special diet: No Highest level of school completed/degree received: Master's degree Physical activity type: other Physical activity type details: volleyball Smoking Status: Never smoker Do you use any of these nicotine containing products: None Second hand tobacco smoke exposure: No How often do you have a drink containing alcohol: never How often do you have six or more drinks on one occasion: Never AUDIT-C Alcohol total score: 0 Non-prescribed substance use: denies use Caffeine: Yes (up to 2 cups of coffee a day) Little interest or pleasure in doing things: not at all Feeling down, depressed, or hopeless: not at all service: No Exam Const: Vital Signs, click to edit/add: Vital Signs - 24 hr 08/18/22 15:55 Temperature 97.7 F Pulse Rate [Pulse Oximeter] 96 Respiratory Rate 18 Blood Pressure [Le ft Upper Arm] 121/80 Pulse Oximetry 100 Oxygen Delivery Me thod Room Air Documenting provider has reviewed patient's vital signs: yes Common normals: no apparent distress General appearance: cooperative, comfortable and well kempt HENMT: Common normals: normocephalic Head and scalp: normocephalic Mouth: oral and palatal mucosa normal Throat: posterior oropharynx normal Eye: Common normals: no scleral icterus Other: Mild conjunctival pallor Neck & C-Spine: Common normals: full ROM, no lymphadenopathy and thyroid normal Thyroid: thyroid normal Resp: Common normals: normal respiratory effort, no use of accessory muscles and clear to auscultation bilaterally Effort & inspection: able to speak in complete sentences Auscultation: clear to auscultation bilaterally Cardio: Common normals: regular rate, regular rhythm, S1 normal heart sound, S2 normal heart sound, no murmurs and peripheral pulses 2+ throughout Rate: regular rate Rhythm: regular rhythm Heart sounds: S1 normal and S2 normal Peripheral pulses: pulses 2+ throughout GI: Common normals: Normal to inspection, nondistended, normoactive bowel sounds present and no hepatosplenomegaly Palpation: no hepatosplenomegaly Other: Fundus is below the umbilicus but is exquisitely tender which is concerning. I defer vaginal exam today Extremity: Common normals: normal capillary refill and no pedal edema Neuro: Speech: speech normal Motor exam: no tremor noted and no movement abnormalities noted Psych: Appearance: well kempt Attitude: engaged Activity/motor behavior: appropriate eye contact Mood and affect: euthymic mood Insight: insight good Judgement: judgment good Skin: Common normals: no rashes or lesions noted General skin exam: no rashes or lesions noted Course Course Hospital Course: Concern for retained products of conception, plus or minus endometriosis based on her level of tenderness. Did speak with Dr. Felix Nguyễn she sure some of my concerns. Will place a peripheral IV, get a pelvic ultrasound, quantitative HCG, basic metabolic panel, CBC, CRP. Please note that her CRP is typically elevated but this may be helpful for tracking purposes. She is likely to need a D&C and we will obtain a COVID swab. I will update the Ob provider when we have appropriate results. Vital Signs Vital signs: Initial Vital Signs Temperature 97.7 F 08/18/22 15:55 Temperature Source Temporal Artery Scan 08/18/22 15:55 Pulse Rate 96 08/18/22 15:55 Pulse Rhythm 08/18/22 15:55 Respiratory Rate 18 08/18/22 15:55 Blood Pressure 121/80 08/18/22 15:55 Blood Pressure Mean 93 08/18/22 15:55 Blood Pressure Position Sitting 08/18/22 15:55 Pulse Oximetry 100 08/18/22 15:55 Oxygen Delivery Method 08/18/22 15:55 Vital Signs Temperature 97.7 F 08/18/22 15:55 Pulse Rate 96 08/18/22 15:55 Respiratory Rate 18 08/18/22 15:55 Blood Pressure 121/80 08/18/22 15:55 Pulse Oximetry 100 08/18/22 15:55 Oxygen Delivery Method 08/18/22 15:55 Temperature 97.7 F 08/18/22 15:55 Pulse Rate 96 08/18/22 15:55 Respiratory Rate 18 08/18/22 15:55 Blood Pressure 121/80 08/18/22 15:55 Pulse Oximetry 100 08/18/22 15:55 Oxygen Delivery Method 08/18/22 15:55 Medical Decision Making MDM Narrative Medical decision making narrative: 5:53 p.m.: All labs and ultrasound results are now back. There is a increased area vascularity which is suspicious for retained products. White count is thankfully going down and there was no further drop in hemoglobin. I am updating Dr. Felix Nguyễn for additional direction. COVID swab is negative. She is medically cleared for anesthesia if appropriate at this time. Update 745: Dr. Forrest Nguyễn has recommended a D&C procedure. She will assume care for patient. Patient is medically cleared for anesthesia this time with no additional perioperative recommendations. Lab Data Labs: Lab Results 08/18/22 08/18/22 08/18/22 Range/Units 16:33 16:40 16:40 WBC 12.38 H (4.50-11.00) K/uL RBC 3.17 L (4.00-5.20) m/uL Hgb 9.6 L (12.0-16.0) gm/dL Hct 29.2 L (33.0-51.0) % MCV 92 (80-100) fL MCH 30 (26-34) pg MCHC 33 (32-36) gm/dL RDW Coeff of Garth 13.2 (11.5-15.5) % Plt Count 300 (140-440) K/uL Neut % (Auto) 80.5 H (42.0-72.0) % Lymph % (Auto) 12.0 L (20-44) % Graves % (Auto) 5.0 (0.0-11.0) % Eos % (Auto) 1.5 (0.0-7.0) % Baso % (Auto) 0.3 (0.0-3.0) % Neut # (Auto) 10.00 H (1.7-7.0) K/uL Lymph # (Auto) 1.50 (0.90-2.90) K/uL Graves # (Auto) 0.60 (0.00-0.90) K/UL Eos # (Auto) 0.20 (0.00-0.50) K/uL Baso # (Auto) 0.00 (0.00-0.30) K/uL Abs Immat Gran (auto) 0.10 (0.00-0.30) K/uL Imm/Tot Granulo (auto) 0.7 % Sodium 139 (135-149) mmol/L Potassium 4.0 (3.6-5.1) mmol/L Chloride 105 (96-114) mmol/L Carbon Dioxide 23 (20-32) mmol/L BUN 15 (5-24) mg/dL Creatinine 0.5 (0.5-1.5) mg/dL Estimated Creat Clear 178.87 Estimated GFR 127 ml/min Glucose 84 (60-115) mg/dL Calcium 9.1 (8.4-10.6) mg/dL C-Reactive Protein 6.6 H (0.5-1.0) mg/dL HCG, Quant 129.67 mIU/mL SARS-CoV-2 (PCR) Negative SARS-CoV-2 (Negative) Discharge Plan Discharge Clinical Impression: Retained products of conception after miscarriage Condition: Stable Prescriptions: No Action prednisolone sodium phosphate 10 mg tablet,disintegrating 10 mg PO .PRN ferrous sulfate 325 mg (65 mg iron) tablet,delayed release (DR/EC) 325 mg PO DAILY Qty: 60 0RF ibuprofen 600 mg tablet 600 mg PO Q6H PRNQty: 90 0RF enoxaparin 40 mg/0.4 mL syringe 40 mg subcut Q24H Qty: 60 2RF Follow Up/Referrals: Provider,Not a Local [Primary Care Provider] -
--- NOTE | 2022-08-18 16:29 | CRLHL7_ITS ---
For Patients: As a result of the Century Cures Act, medical imaging exams and procedure reports are released immediately into your electronic medical record. You may view this report before your referring provider. If you have questions, please contact your health care provider. INDICATION: Recent miscarriage. Possible retained products of conception. TECHNIQUE: Ultrasound pelvis transabdominal. COMPARISON: None. FINDINGS: Uterus: 10 x 6 x 5 cm. A 4 cm fibroid is in the posterior body. Endometrium: Transvaginal imaging was performed to better evaluate the endometrium. Endometrial thickness measures 10 mm. No sign of endometrial mass or fluid. However, there is mild hypervascularity in the endometrial tissue. Right ovary measures 4 x 3 x 2 cm and left ovary measures 3 x 2 x 2 cm. No ovarian or adnexal masses. Cul-de-sac: No significant free fluid. IMPRESSION: Endometrium is normal in thickness and appearance. However, there is mild hypervascularity within the endometrial tissue. Retained products of conception is possible based on this finding. Remainder of the exam is unremarkable. Dictated by Scott Altman MD @ 08/18/2022 5:47:09 PM (Electronically Signed)
[2022-08-18 16:48] LABS: Basophils Percent Auto 0.3 % (0.0-3.0); Eosinophils Percent Auto 1.5 % (0.0-7.0); Hematocrit 29.2 % (33.0-51.0); Hemoglobin* 9.6 gm/dL (12.0-16.0); Immature Granulocytes Pct Auto 0.7 %; Mean Corpuscular HGB Conc 33 gm/dL (32-36); Mean Corpuscular Hemoglobin 30 pg (26-34); Mean Corpuscular Volume 92 fL (80-100); Neutrophils Percent Auto 80.5 % (42.0-72.0); Platelet Count* 300 K/uL (140-440); RDW Coefficient of Variation % 13.2 % (11.5-15.5); Red Blood Count 3.17 m/uL (4.00-5.20); White Blood Count* 12.38 K/uL (4.50-11.00)
[2022-08-18 17:03] LABS: Chloride* 105 mmol/L (96-114); Sodium* 139 mmol/L (135-149)
[2022-08-18 17:05] LABS: Creatinine* 0.5 mg/dL (0.5-1.5); Est. Creatinine Clearance* 178.87; Estimated Glomerular Filt Rate 127 ml/min
[2022-08-18 17:06] LABS: Blood Urea Nitrogen* 15 mg/dL (5-24); Carbon Dioxide* 23 mmol/L (20-32); Glucose* 84 mg/dL (60-115); Slide Review Reflex No
[2022-08-18 17:07] LABS: Calcium* 9.1 mg/dL (8.4-10.6)
[2022-08-18 17:09] LABS: C Reactive Protein* 6.6 mg/dL (0.5-1.0)
[2022-08-18 17:22] LABS: HCG Quantitative* 129.67 mIU/mL
[2022-08-18 17:25] LABS: SARS PCR* Negative SARS-CoV-2 (Negative)
[2022-08-18] MEDS: KETOROLAC 15 MG/ML inj IVP (19:13)
--- NOTE | 2022-08-18 19:42 | ED.NURSE ---
Surgeon at bedside to obtain informed consent.
--- NOTE | 2022-08-18 19:59 | ED.NURSE ---
Last oral intake: meal at 1100 and water at 1600. Pt changed into gown and hospital socks. Pt's jewelry removed, placed in labeled specimen cup, and given to .
[2022-08-18] MEDS: 0.9 % SODIUM CHLORIDE 1000 ml 1,000 ML IV (20:15)
[2022-08-18] MEDS: DOXYCYCLINE HYCLATE 200 MG in 0.9 % SODIUM CHLORIDE Mini-bag 100 ML 100 MG IVPB (20:17)
--- NOTE | 2022-08-18 20:45 | ED.NURSE ---
Anesthesia in with pt and obtaining informed consent. Pt to surgery with retained fragments that were brought from home, to give to MD. Pt to be recovered in med surg room 257. Pt's escorted to med surg room with all pt belongings to await pt.
[2022-08-18] MEDS: LIDOCAINE 1 % PF 30 ML INJECTION (21:24)
--- NOTE | 2022-08-18 21:36 | PM.GYNCN1 ---
CLINICAL DENTAL TECHNICIAN - CN: HPI Data of Consult Date Seen: 08/18/22 Requesting Physician: ER physician Primary Care Provider: Not a Local Provider Consult Narrative Reason for consult: vaginal bleeding Narrative: Zeny Johnson is a 32 year old female who is seen tonight after passage of a large tissue/blood clot at home. Patient is known to our service after being recently admitted for management of loss. Patient was diagnosed with a demise measuring consistent with about 10 weeks. She was admitted for medical management and was discharged home after passage of tissue and fetus. She did receive IV antibiotics for suspected early infection. Tonight she states she had been doing well until tonight where she started to experience some more significant cramping and then passed a large amount of tissue, patient brings in a picture and it seems like a large placental part. Labs and US completed at ER. Hemoglobin stable from discharge, low. US with concern for vascular area at fundal endometrium concerning for retained products. PFSH PFS Medical History Elevated C-reactive protein (CRP) History of abnormal cervical Papanicolaou smear Pulmonary embolism Surgical History H/O breast augmentation Family History Mother High blood pressure Depression Father High blood pressure Diabetes Rheumatoid arteritis Social History Are you following a diet prescribed by a doctor: No Are you following a special diet: No Highest level of school completed/degree received: Master's degree Physical activity type: other Physical activity type details: volleyball Smoking Status: Never smoker Do you use any of these nicotine containing products: None Second hand tobacco smoke exposure: No How often do you have a drink containing alcohol: never How often do you have six or more drinks on one occasion: Never AUDIT-C Alcohol total score: 0 Non-prescribed substance use: denies use Caffeine: Yes (up to 2 cups of coffee a day) Little interest or pleasure in doing things: not at all Feeling down, depressed, or hopeless: not at all service: No Meds Home Medications and Allergies Home Medications Medication Instructions Recorded Confirmed Type prednisolone sodium phosphate 10 10 mg PO .PRN 07/21/22 08/15/22 History mg disintegrating tablet Allergies Allergy/AdvReac Type Severity Reaction Status Date / Time No Known Drug Allergies Allergy Verified 08/18/22 15:54 CLINICAL DENTAL TECHNICIAN - Exam Physical Exam: Vital signs: Temp Pulse Resp BP Pulse Ox O2 Del Method 99.7 F H 83 12 118/76 100 08/18/22 20:08 08/18/22 20:08 08/18/22 20:08 08/18/22 20:08 08/18/22 20:08 08/18/22 20:08 CLINICAL DENTAL TECHNICIAN - Results Labs Labs: Short CBC 08/18/22 Range/Units 16:40 WBC 12.38 H (4.50-11.00) K/uL Hgb 9.6 L (12.0-16.0) gm/dL Hct 29.2 L (33.0-51.0) % Plt Count 300 (140-440) K/uL BMP 08/18/22 16:40 Sodium 139 Potassium 4.0 Chloride 105 Carbon Dioxide 23 BUN 15 Creatinine 0.5 Glucose 84 Calcium 9.1 Assessment and Plan Assessment and plan (1) Retained products of conception after miscarriage: Status: Acute Plan Recommendation given to perform D&C. Informed consent discussed with patient. Will proceed to OR.
--- NOTE | 2022-08-18 21:39 | W.ANESCHARGE ---
Anesthesia Charges Start Date/Time Anesthesia Start Date: 08/18/22 Anesthesia Start Time: 20:44 Stop Date/Time Anesthesia Stop Date: 08/18/22 Anesthesia Stop Time: 21:40 Summary Emergency: Yes
[2022-08-18] MEDS: miSOPROStoL 800 MCG/4 TABLET PR (21:40)
--- NOTE | 2022-08-18 21:46 | P.GYNPRC_ITS ---
Procedure Note Date Seen: 08/18/22 Procedure Details: Preop diagnosis: Suspected retained products of conception Postop diagnosis: Retained products of conception Name of procedure: Suction Dilation and Curettage Surgeon: Martine Clayton Obgyn Hospitalist Physician: None Complications: None EBL: 50mL Drains: None Findings: External genitalia normal, cervix open,multiparous. Moderate amount of blood seen to be coming out, also small dark blood clots seen at external cervix. Ultrasound at the end of procedure confirmed fundus to be hypoechoic and homogenous w/o increased vascularity. Risks, benefits, alternatives, and indications of the procedure were discussed with the patient. She voiced an understanding of the procedure and signed the consent. The patient was taken to the OR were MAC anesthesia was administered without difficulty. She was placed in the dorsal lithotomy position with Roberto type stirrups. An exam under anesthesia revealed a 8-9 week sized anteverted uterus with the cervix open. The patient was prepared and draped in the normal sterile fashion. Her bladder was emptied with in--out catheter. A bivalved speculum was inserted in the posterior aspect of the vagina. 5 mL 1% lidocaine was injected in the anterior lip of cervix, a ring forceps was used to grasp the anterior lip of the cervix. The uterus was carefully sounded to 9 cm. A 10 mm suction curette was advanced to the uterine fundus,bedside ultrasound guidance confirmed curette was at the fundus. The suction was then started. The p roducts of conception were evacuated with the curette rotating on the outward movement. This was repeated a couple of times until only minimal blood was seen to come out. The ring forceps was removed from the cervix and good hemostasis was noted. 800mcg of Cytotec placed rectally. The patient tolerated the procedure well. Instrument and sponge counts were correct x2. She did receive Doxycycline 200mg IV x1 at the start of procedure. Patient was taken to the recovery room in a stable condition. The patient will go home after recovering from anesthesia and meeting all the criteria for discharge. She was given the instructions regarding follow-up visit in 2 weeks at the [facility] and a prescription for pain medication.
[2022-08-18] MEDS: LACTATED RINGERS 1000 ML 1,000 ML 100 ML IV (21:56)
--- NOTE | 2022-08-19 01:59 | PC.NURSE ---
pt d/c at 0145. VSS. no c/o pain. no c/o of cramps. no c/o nausea. minimal spotting in pad. IV removed, cath intact. D'c education review. all questions answered.
== END 2022-08-19 02:00 | disposition home or self-care (01) ==
LOC: ED 19:58 → SS 20:09 → MEDSURG 21:38
PROVIDERS: Obstetrics & Gynecology; Emergency Provider Family Medicine; Visit Provider Internal Medicine Nephrology
DX: O03.1 Delayed or excessive hemorrhage following incomplete spontaneous abortion (principal)
CPT/HCPCS: 59812; 00940; 36415; 76830; 76856; 80048; 84702; 85025; 86140; 87040; 87635; 88305; 99140; 99284; 99285; A9270; J1100; J1200; J1885; J2001; J2250; J2405; J2704; J3010; J7030; J7120

== ENCOUNTER 2022-12-05 15:12 | Emergency (ER) | payer OTHER, SELFPAY ==
[2022-12-05] VITALS (9 sets, daily range): BP systolic 127–136; BP diastolic 67–85; PULSE 51–69; RESP 18; TEMP 37.1; O2SAT 99–100; BMI 23.0
[2022-12-05] MEDS: IBUPROFEN 200 MG TABLET 800 MG PO (16:37)
[2022-12-05 16:50] LABS: Basophils Absolute Auto 0.05 K/uL (0.00-0.30); Basophils Percent Auto 0.5 % (0.0-3.0); Eosinophils Absolute Auto 0.27 K/uL (0.00-0.50); Eosinophils Percent Auto 2.9 % (0.0-7.0); Hematocrit 38.7 % (33.0-51.0); Hemoglobin* 12.5 gm/dL (12.0-16.0); Immature Granulocytes Abs Auto 0.01 K/uL (0.00-0.30); Immature Granulocytes Pct Auto 0.1 %; Lymphocytes Absolute Auto 2.05 K/uL (0.90-2.90); Lymphocytes Percent Auto 22.3 % (20-44); Mean Corpuscular HGB Conc 32 gm/dL (32-36); Mean Corpuscular Hemoglobin 28 pg (26-34); Mean Corpuscular Volume 86 fL (80-100); Monocytes Percent Auto 6.6 % (0.0-11.0); Neutrophils Absolute Auto 6.22 K/uL (1.7-7.0); Neutrophils Percent Auto 67.6 % (42.0-72.0); Platelet Count* 289 K/uL (140-440); RDW Coefficient of Variation % 14.6 % (11.5-15.5); Red Blood Count 4.52 m/uL (4.00-5.20); White Blood Count* 9.21 K/uL (4.50-11.00)
[2022-12-05 16:55] LABS: Slide Review Reflex No
[2022-12-05 17:06] LABS: Albumin* 4.8 g/dL (3.3-5.0); Chloride* 108 mmol/L (96-114); Sodium* 140 mmol/L (135-149)
[2022-12-05 17:07] LABS: Potassium* 3.6 mmol/L (3.6-5.1)
[2022-12-05 17:08] LABS: Creatinine* 0.8 mg/dL (0.5-1.5); Est. Creatinine Clearance* 111.79; Estimated Glomerular Filt Rate 100 ml/min
[2022-12-05 17:09] LABS: Alanine Aminotransferase* 17 U/L (4-35); Alkaline Phosphatase* 38 U/L (40-150); Aspartate Amino Transferase* 22 U/L (12-35); Bilirubin Direct* 0.2 mg/dL (0.0-0.5); Bilirubin Total* 0.5 mg/dL (0.1-1.5); Blood Urea Nitrogen* 15 mg/dL (5-24); Carbon Dioxide* 24 mmol/L (20-32); Glucose* 98 mg/dL (60-115); Total Protein* 7.9 g/dL (6.0-8.3)
[2022-12-05 17:10] LABS: Magnesium* 1.9 mg/dL (1.5-2.6)
[2022-12-05 17:19] LABS: NT Pro B Type NatriureticPept* 36 pg/mL
[2022-12-05 17:20] LABS: D Dimer Quantitative* < 0.27 ug/ml (0.00-0.50)
[2022-12-05 17:22] LABS: Troponin I* < 0.01 ng/mL (0.01-0.04)
--- NOTE | 2022-12-05 17:28 | ED_ITS ---
HPI - General Adult General Chief complaint: Dizziness/Vertigo Stated complaint: Sharp pains rt ribcage,Rt arm numb,dizzy,nausea Time Seen by Provider: 12/05/22 15:41 History of Present Illness HPI narrative: 32-year-old woman presenting to the emergency department with complaint of left low chest pain underneath her right breast area. Difficult to reproduce but seems somewhat pleuritic. Substance this occurred about an hour prior to arrival to emergency department. She then started to have some sensation of maybe her right arm being asleep describing as some mild numbness or tingling which she felt the need to shake it. This discomfort kind of came and went. She is not overly short of breath was not hyperventilating she says. Trauma does have an underlying history of pulmonary embolus years ago. Around this time was also feeling little lightheaded. Residual then with generalized headache for which she does not think she needs any significant treatment. Was nauseated. Does then think a maybe some ibuprofen would be helpful. Does not recall palpitations/rapid heart rate. Related Data Allergies Allergy/AdvReac Type Severity Reaction Status Date / Time No Known Drug Allergies Allergy Verified 12/05/22 15:23 Review of Systems Status of ROS: Reports: 10 or more systems reviewed and unremarkable except as noted in History and below [facility] Medical History Elevated C-reactive protein (CRP) History of abnormal cervical Papanicolaou smear Pulmonary embolism Surgical History H/O breast augmentation Family History Mother High blood pressure Depression Father High blood pressure Diabetes Rheumatoid arteritis Social History Are you following a diet prescribed by a doctor: No Are you following a special diet: No Highest level of school completed/degree received: Master's degree Physical activity type: other Physical activity type details: volleyball Smoking Status: Never smoker Do you use any of these nicotine containing products: None Second hand tobacco smoke exposure: No How often do you have a drink containing alcohol: never How often do you have six or more drinks on one occasion: Never AUDIT-C Alcohol total score: 0 Non-prescribed substance use: denies use Caffeine: Yes (up to 2 cups of coffee a day) Little interest or pleasure in doing things: not at all Feeling down, depressed, or hopeless: not at all service: No Exam Narrative: Exam Narrative: Pleasant. NAD. Skin warm and dry without rash. Not really able to reproduce her discomfort. It is subcostal but not in the abdomen. Lungs appear to be clear. Heart with a regular rate and rhythm. She appears to be breathing easily. Cranial nerves 2-12 intact. Abdomen is soft nontender. Moving all extremities without difficulty with good strength and she does not have any peripheral edema. Const: Vital Signs, click to edit/add: Vital Signs - 24 hr 12/05/22 15:18 12/05/22 15:42 12/05/22 17:35 Temperature 98.7 F Pulse Rate 67 Pulse Rate [Pulse Oximeter] 63 Pulse Rate [orthos tatic lying] 52 L Pulse Rate [orthos tatic sitting] 60 Pulse Rate [orthos tatic standing] 60 Respiratory Rate 18 Blood Pressure Blood Pressure [Ri ght Upper Arm] 135/85 Blood Pressure [or thostatic lying] 127/67 Blood Pressure [or thostatic sitting] 129/77 Blood Pressure [or thostatic standing ] 136/84 Pulse Oximetry 100 99 Oxygen Delivery Me thod Room Air 12/05/22 16:00 12/05/22 16:30 12/05/22 17:31 Temperature Pulse Rate 69 51 L 51 L Pulse Rate [Pulse Oximeter] Pulse Rate [orthos tatic lying] Pulse Rate [orthos tatic sitting] Pulse Rate [orthos tatic standing] Respiratory Rate Blood Pressure Blood Pressure [Ri ght Upper Arm] Blood Pressure [or thostatic lying] Blood Pressure [or thostatic sitting] Blood Pressure [or thostatic standing ] Pulse Oximetry 100 100 100 Oxygen Delivery Me thod 12/05/22 17:32 12/05/22 17:33 12/05/22 17:34 Temperature Pulse Rate 52 L 64 54 L Pulse Rate [Pulse Oximeter] Pulse Rate [orthos tatic lying] Pulse Rate [orthos tatic sitting] Pulse Rate [orthos tatic standing] Respiratory Rate Blood Pressure 127/67 129/77 136/84 Blood Pressure [Ri ght Upper Arm] Blood Pressure [or thostatic lying] Blood Pressure [or thostatic sitting] Blood Pressure [or thostatic standing ] Pulse Oximetry 100 100 100 Oxygen Delivery Me thod Documenting provider has reviewed patient's vital signs: yes Course Vital Signs Vital signs: Initial Vital Signs Temperature 98.7 F 12/05/22 15:18 Temperature Source Temporal Artery Scan 12/05/22 15:18 Pulse Rate 63 12/05/22 15:18 Pulse Rhythm 12/05/22 15:18 Pulse Strength 3+ Normal 12/05/22 15:18 Respiratory Rate 18 12/05/22 15:18 Blood Pressure 135/85 12/05/22 15:18 Blood Pressure Mean 101 12/05/22 15:18 Blood Pressure Position Sitting 12/05/22 15:18 Pulse Oximetry 100 12/05/22 15:18 Oxygen Delivery Method 12/05/22 15:18 Vital Signs Temperature 98.7 F 12/05/22 15:18 Pulse Rate 63 12/05/22 15:18 Respiratory Rate 18 12/05/22 15:18 Blood Pressure 135/85 12/05/22 15:18 Pulse Oximetry 100 12/05/22 15:18 Oxygen Delivery Method 12/05/22 15:18 Temperature 98.7 F 12/05/22 15:18 Pulse Rate 52 L 12/05/22 17:35 Respiratory Rate 18 12/05/22 15:18 Blood Pressure 127/67 12/05/22 17:35 Pulse Oximetry 100 12/05/22 17:34 Oxygen Delivery Method 12/05/22 15:18 Medical Decision Making MDM Narrative Medical decision making narrative: Will be checking labs and monitor playground monitor. Pneumothorax, pneumomediastinum, gallbladder disease, pulmonary embolus would be in differential. Doubtful cardiac etiology other than possible rhythm issue. Given ibuprofen. Labs overall reassuring including negative troponins and D-dimer. Overall improved. On monitor without event. See patient discharge plan Lab Data Lab results reviewed: Yes I reviewed the patient's lab results Labs: Lab Results 12/05/22 12/05/22 12/05/22 Range/Units 16:06 16:29 16:29 WBC 9.21 (4.50-11.00) K/uL RBC 4.52 (4.00-5.20) m/uL Hgb 12.5 (12.0-16.0) gm/dL Hct 38.7 (33.0-51.0) % MCV 86 (80-100) fL MCH 28 (26-34) pg MCHC 32 (32-36) gm/dL RDW Coeff of Garth 14.6 (11.5-15.5) % Plt Count 289 (140-440) K/uL Neut % (Auto) 67.6 (42.0-72.0) % Lymph % (Auto) 22.3 (20-44) % [place] % (Auto) 6.6 (0.0-11.0) % Eos % (Auto) 2.9 (0.0-7.0) % Baso % (Auto) 0.5 (0.0-3.0) % Neut # (Auto) 6.22 (1.7-7.0) K/uL Lymph # (Auto) 2.05 (0.90-2.90) K/uL [place] # (Auto) 0.60 (0.00-0.90) K/UL Eos # (Auto) 0.27 (0.00-0.50) K/uL Baso # (Auto) 0.05 (0.00-0.30) K/uL D-Dimer Quant (PE/DVT) < 0.27 (0.00-0.50) ug/ml Sodium (135-149) mmol/L Potassium (3.6-5.1) mmol/L Chloride (96-114) mmol/L Carbon Dioxide (20-32) mmol/L BUN (5-24) mg/dL Creatinine (0.5-1.5) mg/dL Estimated Creat Clear Estimated GFR ml/min Glucose (60-115) mg/dL Calcium (8.4-10.6) mg/dL Magnesium (1.5-2.6) mg/dL Total Bilirubin (0.1-1.5) mg/dL Direct Bilirubin (0.0-0.5) mg/dL AST (12-35) U/L ALT (4-35) U/L Alkaline Phosphatase (40-150) U/L Troponin I (0.01-0.04) ng/mL NT-Pro-B Natriuret Pep pg/mL Total Protein (6.0-8.3) g/dL Albumin (3.3-5.0) g/dL POC Troponin I 0.00 L (0.01-0.04) ng/ml 12/05/22 12/05/22 Range/Units 16:29 16:29 WBC (4.50-11.00) K/uL RBC (4.00-5.20) m/uL Hgb (12.0-16.0) gm/dL Hct (33.0-51.0) % MCV (80-100) fL MCH (26-34) pg MCHC (32-36) gm/dL RDW Coeff of Garth (11.5-15.5) % Plt Count (140-440) K/uL Neut % (Auto) (42.0-72.0) % Lymph % (Auto) (20-44) % [place] % (Auto) (0.0-11.0) % Eos % (Auto) (0.0-7.0) % Baso % (Auto) (0.0-3.0) % Neut # (Auto) (1.7-7.0) K/uL Lymph # (Auto) (0.90-2.90) K/uL [place] # (Auto) (0.00-0.90) K/UL Eos # (Auto) (0.00-0.50) K/uL Baso # (Auto) (0.00-0.30) K/uL D-Dimer Quant (PE/DVT) (0.00-0.50) ug/ml Sodium 140 (135-149) mmol/L Potassium 3.6 (3.6-5.1) mmol/L Chloride 108 (96-114) mmol/L Carbon Dioxide 24 (20-32) mmol/L BUN 15 (5-24) mg/dL Creatinine 0.8 (0.5-1.5) mg/dL Estimated Creat Clear 111.79 Estimated GFR 100 ml/min Glucose 98 (60-115) mg/dL Calcium 9.0 (8.4-10.6) mg/dL Magnesium 1.9 (1.5-2.6) mg/dL Total Bilirubin 0.5 Cancelled (0.1-1.5) mg/dL Direct Bilirubin 0.2 Cancelled (0.0-0.5) mg/dL AST 22 Cancelled (12-35) U/L ALT 17 Cancelled (4-35) U/L Alkaline Phosphatase 38 L Cancelled (40-150) U/L Troponin I < 0.01 L Cancelled (0.01-0.04) ng/mL NT-Pro-B Natriuret Pep 36 pg/mL Total Protein 7.9 Cancelled (6.0-8.3) g/dL Albumin 4.8 Cancelled (3.3-5.0) g/dL POC Troponin I (0.01-0.04) ng/ml ECG Data Attestation: I personally reviewed and interpreted this ECG as follows: (Sinus bradycardia rate of 58) Discharge Plan Discharge Clinical Impression: Headache, Atypical chest pain Patient Disposition: Home w/ Parent or Adult Condition: Improved Instructions: Chest Pain (ED) Additional Instructions: Focus on hydration. Return for persistent recurrence of symptoms, increasing and persistent chest pain, shortness of breath, new and focal weakness. Follow up with Primary Care to discuss events and potential need for further workup. Follow Up/Referrals: Provider,Not a Local [Primary Care Provider] - Stand Alone Forms: [employer] Info Instructions
== END 2022-12-05 18:18 | disposition home or self-care (01) ==
PROVIDERS: Emergency Provider Family Medicine
DX: R51.9 Headache, unspecified (principal); R07.9 Chest pain, unspecified
CPT/HCPCS: 36415; 80048; 80076; 83735; 83880; 84484; 85025; 85379; 93005; 99284; A9270

== ENCOUNTER 2023-01-23 15:06 | Outpatient (CLI) | payer OTHER, SELFPAY ==
[2023-01-23 20:10] LABS: Chlamydia DNA Amplified* NOT DETECTED (No Detected); GC DNA Amplified* NOT DETECTED (No Detected)
== END 2023-01-23 15:07 | disposition home or self-care (01) ==
PROVIDERS: Visit Provider Physician Assistant
DX: Z34.91 Encounter for supervision of normal pregnancy, unspecified, first trimester (principal); Z3A.10 10 weeks gestation of pregnancy
CPT/HCPCS: 0353U; 76817; 86592; 86703; 86762; 86787; 86803; 86850; 86900; 86901; 87086; 87340; 87491; 87591

== ENCOUNTER 2023-03-23 10:19 | Outpatient (CLI) | payer OTHER, SELFPAY ==
--- NOTE | 2023-03-23 15:00 | CRLHL7_ITS ---
For Patients: As a result of the Century Cures Act, medical imaging exams and procedure reports are released immediately into your electronic medical record. You may view this report before your referring provider. If you have questions, please contact your health care provider. INDICATION: Episode of bleeding COMPARISON: 01/23/2023 TECHNIQUE: Real-time olivia-scale imaging of the pelvis was performed. FINDINGS: Posterior placenta appears normal. heart rate 147 beats per minute. Cord insertion into the placenta appears normal. A small subchorionic hemorrhage is present measuring 1.9 x 1.1 x 0.9 cm. The cervix is closed and measures 3.1 cm. The amniotic fluid volume appears normal subjectively. IMPRESSION: Single living intrauterine with normal heart rate and normal amniotic fluid with closed cervix. A small subchorionic hemorrhage is present measuring 1.9 x 1.1 x 0.9 cm. The posterior placenta is normal. Dictated by Rupesh Calderon MD @ 03/24/2023 6:05:48 AM (Electronically Signed)
== END 2023-03-23 10:20 | disposition home or self-care (01) ==
PROVIDERS: Visit Provider Physician Assistant
DX: O20.9 Hemorrhage in early pregnancy, unspecified (principal)
CPT/HCPCS: 76815; 76816

== ENCOUNTER 2023-04-06 08:13 | Outpatient (CLI) | payer OTHER, SELFPAY ==
--- NOTE | 2023-04-06 08:15 | CRLHL7_ITS ---
For Patients: As a result of the Century Cures Act, medical imaging exams and procedure reports are released immediately into your electronic medical record. You may view this report before your referring provider. If you have questions, please contact your health care provider. INDICATION: Evaluate anatomy. COMPARISON: 03.23.23, 01.23.23 TECHNIQUE: Real time olivia scale imaging of the fetus was performed as well as color Doppler analysis of the umbilical vessels. FINDINGS: Sonographic imaging demonstrates a single living intrauterine gestation. Fetus demonstrates a regular cardiac rate of 149 beats per minute. Fetus has a transverse position, head maternal right. The placenta lies posteriorly with complete placenta previa, confirmed with transvaginal imaging. Amniotic fluid volume appears normal. Single deepest vertical pocket: 4.9 cm. The cervix is closed and measures 4.9 cm in length. The composite ultrasound gestational age is calculated at 20 weeks 5 days with an estimated sonographic due date of 08/19/2023. The estimated weight is 375 grams which lies at the 85th %. The following biometric measurements were obtained: Biparietal diameter: 4.6 cm/19 weeks 6 days 44th% Head circumference: 18.1 cm/20 weeks 4 days 68th% Abdominal circumference: 15.5 cm/20 weeks 5 days 66th% Femur length: 3.5 cm/21 weeks 0 days 78th% The HC/AC ratio measures: 1.17 range (1.06-1.25) On anatomic survey, there is a normal appearance of the cerebral ventricles, cavum septi pellucidi, cisterna magna and cerebellum. The nose, lips, and facial profile appear normal. The cervical, thoracic and lumbar spine are well visualized and appear normal. There is a normal four-chamber heart view and the left and right ventricular outflow tracts appear normal. The diaphragm and stomach appear normal. The kidneys and bladder also appear normal. There is a normal three-vessel cord and cord insertion site. The four extremities appear normal. IMPRESSION: Concordance of clinical and sonographic dating. No intrinsic abnormalities noted on anatomic survey. Complete placenta previa. Dictated by Rupesh Calderon MD @ 04/06/2023 2:17:54 PM (Electronically Signed)
== END 2023-04-06 08:14 | disposition home or self-care (01) ==
LOC: US 08:13
PROVIDERS: Visit Provider Physician Assistant
DX: Z34.92 Encounter for supervision of normal pregnancy, unspecified, second trimester (principal); Z3A.20 20 weeks gestation of pregnancy
CPT/HCPCS: 76805; 76817

== ENCOUNTER 2023-04-27 21:07 | Outpatient (CLI) | payer OTHER, SELFPAY ==
[2023-04-27 21:18] VITALS: BP 123/77; PULSE 74; RESP 16; TEMP 36.8
[2023-04-27 21:19] VITALS: PULSE 79; O2SAT 98
--- NOTE | 2023-04-27 21:26 | CRLHL7_ITS ---
For Patients: As a result of the Century Cures Act, medical imaging exams and procedure reports are released immediately into your electronic medical record. You may view this report before your referring provider. If you have questions, please contact your health care provider. HISTORY: . Vaginal bleeding. Placenta previa noted on prior ultrasound. TECHNIQUE: Transabdominal and transvaginal pelvic ultrasound. COMPARISON: 04/06/2023. FINDINGS: There is a living single intrauterine gestation in vertex presentation. heart rate is 155 beats per minute. There is a normal quantity of amniotic fluid. Single deepest pocket measures 5.8 cm. The placenta is located posteriorly and inferiorly. It covers the internal cervical os indicating a complete previa. Cervical length is approximately 3.8 cm. Cervix appears closed. IMPRESSION: 1. Persistence of a complete placenta previa. The placenta is located posteriorly and inferiorly. 2. Living single intrauterine gestation with a heart rate of 155 beats per minute. 3. Normal quantity amniotic fluid. Dictated by Andrey Rivers MD @ 04/28/2023 2:09:20 PM (Electronically Signed)
[2023-04-27] MEDS: LACTATED RINGERS 1000 ML 1,000 ML 125 ML IV (21:43)
[2023-04-27 21:53] LABS: Basophils Percent Auto 0.2 % (0.0-3.0); Hematocrit 32.2 % (33.0-51.0); Hemoglobin* 10.8 gm/dL (12.0-16.0); Immature Granulocytes Pct Auto 0.2 %; Lymphocytes Percent Auto 16.2 % (20-44); Mean Corpuscular HGB Conc 34 gm/dL (32-36); Mean Corpuscular Hemoglobin 31 pg (26-34); Mean Corpuscular Volume 93 fL (80-100); Monocytes Percent Auto 6.5 % (0.0-11.0); Neutrophils Percent Auto 74.9 % (42.0-72.0); Platelet Count* 303 K/uL (140-440); RDW Coefficient of Variation % 13.8 % (11.5-15.5); Red Blood Count 3.45 m/uL (4.00-5.20); White Blood Count* 12.22 K/uL (4.50-11.00)
[2023-04-27 21:54] LABS: Slide Review Reflex No
[2023-04-27 22:06] LABS: INR 0.97 (0.91-1.10); Prothrombin Time 13.5 Seconds
[2023-04-27 22:07] LABS: Fibrinogen* 483 mg/dL (200-450); Partial Thromboplastin Time* 25 Seconds (23-33)
[2023-04-27 23:15] LABS: Amnisure Rom* POSITIVE
--- NOTE | 2023-04-27 23:16 | W.PM.OBO ---
OB Outpatient HPI History of Present Illness Time Seen by Provider: 22:00 Date Seen: 04/27/23 History of Present Illness: 32 year old at 23 0/7 weeks gestation by LMP and first trimester US, AUGUSTINE 08/24/23 , presents with vaginal bleeding. Patient has a known complete placenta previa diagnosed at her anatomy US. She is also on Lovenox 40mg SQ daily due to history of PE. Patient states that she went out for a walk and at around 8pm tonight she felt a watery like discharge, she then went to the bathroom and saw that her underwear had blood that she describes as bright red. Patient states that after this she wiped placed a pad on and she only saw minimal spotting and came in for evaluation. Patient denies pelvic cramping, abdominal tightening. Patient states that she had noted recently some increased pressure, but she states that she thought this to be related to a vulvar varicose vein. Patient denies otherwise malodorous vaginal discharge, she has been having episodes of diarrhea that are intermittent, and she has been managing with Imodium. Denies dysuria, urgency or frequency. Baby moving naturally: Yes Bleeding: Yes Contractions: No Leaking fluid: Yes (Uncertain) Discharge: Yes Heartburn: No Back pain: No Meds Home Medications and Allergies Home Medications Medication Instructions Recorded Confirmed Type prednisolone sodium phosphate 10 10 mg PO .prn 01/23/23 04/27/23 History mg disintegrating tablet docosahexaenoic acid 200 mg 200 mg PO DAILY 03/23/23 04/27/23 History capsule ( DHA) doxylamine succinate 25 mg tablet 25 mg PO QHS PRN 04/27/23 04/27/23 History (Unisom (doxylamine)) Allergies Allergy/AdvReac Type Severity Reaction Status Date / Time No Known Drug Allergies Allergy Verified 04/06/23 09:16 [facility] Medical History (Updated 04/27/23 @ 23:13 by Shanna Casper MD) Pulmonary embolism (2007) ?I26.99 - Other pulmonary embolism without acute cor pulmonale (ICD-10) Normal spontaneous vaginal delivery ?O80 - Encounter for full-term uncomplicated delivery (ICD-10) Retained products of conception after miscarriage ?O03.4 - Incomplete spontaneous without complication (ICD-10) Abdominal pain ?R10.9 - Unspecified abdominal pain (ICD-10) demise before 20 weeks with retention of fetus ?O02.1 - Missed (ICD-10) History of abnormal cervical Papanicolaou smear ?Z87.42 - Personal history of other diseases of the female genital tract (ICD-10) Pulmonary embolism ?I26.99 - Other pulmonary embolism without acute cor pulmonale (ICD-10) Surgical History (Updated 01/23/23 @ 16:27 by Mary Ellen Cobb PA-C) History of D&C ?Z98.890 - Other specified postprocedural states (ICD-10) History of breast augmentation ?Z98.82 - Breast implant status (ICD-10) History of colposcopy ?Z98.890 - Other specified postprocedural states (ICD-10) Family History Mother High blood pressure Depression Father High blood pressure Diabetes Rheumatoid arteritis Social History (Updated 01/23/23 @ 16:26 by Mary Ellen Cobb PA-C) 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 . 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 Are you following a diet prescribed by a doctor: No Are you following a special diet: No Highest level of school completed/degree received: Master's degree Physical activity type: other Physical activity type details: volleyball Smoking Status: Never smoker Do you use any of these nicotine containing products: None Second hand tobacco smoke exposure: No How often do you have a drink containing alcohol: never How often do you have six or more drinks on one occasion: Never AUDIT-C Alcohol total score: 0 Non-prescribed substance use: denies use Caffeine: Yes (up to 2 cups of coffee a day) Little interest or pleasure in doing things: not at all Feeling down, depressed, or hopeless: not at all service: No History History 3 Elective abortions 0 Para 1 Spontaneous abortions 0 Hx # Term Pregnancies 1 Ectopic pregnancies 0 Hx # Pregnancies 0 Multiple births 0 Number of Living Children 1 Past Pregnancies Del. Date GA/Weeks Outcome Route wt Inf Gender Labor Lgth Anesthesia Location Provider Compli 02/05/21 38 live - full term 2.92 kg Female 4 hrs 20 min epidural [facility] - H&P: Exam Physical Exam Vital signs: Temp Pulse Resp BP Pulse Ox 98.2 F 74 16 123/77 98 04/27/23 21:18 04/27/23 21:18 04/27/23 21:18 04/27/23 21:18 04/27/23 21:19 Narrative: Tocometer: No uterine contractions Speculum exam: small blood clot seen in vagina, cervix looks fingertip, long, posterior. There is a blood clot seen at the external cervical os, no active bleeding seen from cervix, no watery discharge, or pooling seen. Labs Labs Laboratory Tests 04/27/23 04/27/23 Range/Units 23:03 21:43 WBC 12.22 H (4.50-11.00) K/uL RBC 3.45 L (4.00-5.20) m/uL Hgb 10.8 L (12.0-16.0) gm/dL Hct 32.2 L (33.0-51.0) % MCV 93 (80-100) fL MCH 31 (26-34) pg MCHC 34 (32-36) gm/dL RDW Coeff of Garth 13.8 (11.5-15.5) % Plt Count 303 (140-440) K/uL Neut % (Auto) 74.9 H (42.0-72.0) % Lymph % (Auto) 16.2 L (20-44) % [place] % (Auto) 6.5 (0.0-11.0) % Eos % (Auto) 2.0 (0.0-7.0) % Baso % (Auto) 0.2 (0.0-3.0) % Neut # (Auto) 9.20 H (1.7-7.0) K/uL Lymph # (Auto) 2.00 (0.90-2.90) K/uL [place] # (Auto) 0.80 (0.00-0.90) K/UL Eos # (Auto) 0.20 (0.00-0.50) K/uL Baso # (Auto) 0.00 (0.00-0.30) K/uL Abs Immat Gran (auto) 0.00 (0.00-0.30) K/uL Imm/Tot Granulo (auto) 0.2 % INR 0.97 (0.91-1.10) APTT 25 (23-33) Seconds Fibrinogen 483 H (200-450) mg/dL Membrane Rupture POSITIVE Blood Type A Positive Antibody Screen NEGATIVE US completed and found cervix closed measuring 3.9cm, fluid in the endocervical canal. SDP 5cm normal. Sterile speculum exam perform and AmniSure collected found positive, clinical impression not consistent with PPROM and recommendation given to collect a Fern test, I recommended for patient to walk, she walked around the unit for at least 10 minutes and afterwards a repeat speculum exam performed for collection of Fern test. Fern test: Negative! Assessment and Plan Assessment and plan (1) Complete placenta previa nos or without hemorrhage, second trimester: Status: Acute Plan 32 y/o with IUP at 23 1/7 weeks who presented for evaluation due to vaginal bleeding in the setting of known complete placenta previa. Patient had one episode of a gush of bright red blood that happened at around 8pm. Patient presented to L&D, vitals normal, tocometer w/o uterine contractions. IVFs started, lab work collected, significant for mild anemia. Normal coagulation parameters. US had been completed that showed a closed cervix measuring 3.9cm. Fluid seen at the endocervical canal, consistent with speculum exam. AmniSure had been found to be positive, in the setting of bleeding, recommendation given to confirm with a fern test. Patient walked around the unit for at least 10 minutes and a repeat sterile speculum exam was performed, no new bleeding noted and fern test completed and found negative, this was reviewed by confectionery laboratory manager as well as myself. Discussed findings with patient, she has been under observation for about 4 hours now and no new episode of concerning bleeding. Recommended for her to start iron supplement, continue to monitor at home and patient was instructed that if there are any new concerns she should come in for re evaluation. I do expect passage of a clot, so as long as it is not bright red and heavier we could continue observation. Otherwise patient has scheduled routine appointment next Monday in clinic. Will follow up then. Continue pelvic rest. Time Spent with Patient Time with Patient: Greater than 35 minutes
[2023-04-28 00:22] LABS: Fern Test* Ferning not present
== END 2023-04-28 01:18 | disposition home or self-care (01) ==
LOC: OB OUT 21:08 → OB 21:08
PROVIDERS: Visit Provider Obstetrics & Gynecology
DX: O44.02 Complete placenta previa NOS or without hemorrhage, second trimester (principal)
CPT/HCPCS: 36415; 76815; 76817; 84112; 85025; 85384; 85610; 85730; 86850; 86900; 86901; 99213; Q0114; J7120

== ENCOUNTER 2023-06-15 11:17 | Outpatient (CLI) | payer OTHER, SELFPAY ==
--- NOTE | 2023-06-15 11:30 | CRLHL7_ITS ---
For Patients: As a result of the Century Cures Act, medical imaging exams and procedure reports are released immediately into your electronic medical record. You may view this report before your referring provider. If you have questions, please contact your health care provider. INDICATION: Localized area of edema right lower extremity. . COMPARISON: None available. FINDINGS: Ultrasound of the venous drainage of the right lower extremity shows no evidence of deep venous thrombosis. There is normal antegrade flow from the posterior tibial and popliteal veins superiorly through the common femoral vein. There is normal augmentation and compressibility of these veins. The left common femoral vein is widely patent. There is focal superficial venous thrombosis of a segment of the right greater saphenous vein at the knee. This correlates with the clinical area of concern. IMPRESSION: 1. There is no evidence of right lower extremity deep venous thrombosis. 2. Focal superficial venous thrombus of a segment of the right greater saphenous vein at the right knee. This correlates with the area of clinical concern Dictated by Peewee Morgan MD @ 06/15/2023 1:16:00 PM (Electronically Signed)
== END 2023-06-15 11:18 | disposition home or self-care (01) ==
LOC: US 11:18
PROVIDERS: Visit Provider Registered Nurse
DX: R60.0 Localized edema (principal); I82.4Z1 Acute embolism and thrombosis of unspecified deep veins of right distal lower extremity
CPT/HCPCS: 93971

== ENCOUNTER 2023-09-25 09:30 | Outpatient (RCR) | payer OTHER, SELFPAY ==
[2023-09-05 14:29] LABS: D Dimer Quantitative* 0.31 ug/ml (0.00-0.50)
[2023-09-07 11:28] LABS: Cardiolipin Antibody IgA <10 APL (<=11); Cardiolipin Antibody IgG <10 GPL (<=14); Cardiolipin Antibody IgM 12 MPL (<=12)
[2023-09-07 17:56] LABS: Protein C Functional 146 % (83-168); Protein S Functional 80 % (57-131)
[2023-09-07 20:04] LABS: Antithrombin, Enzymatic 104 % (76-128)
[2023-09-07 22:08] LABS: B2Glycoprotein 1, IgG Antibody <10 SGU (<=20); B2Glycoprotein 1, IgM Antibody <10 SMU (<=20)
[2023-09-08 00:35] LABS: Prothrombin Time 13.7 sec (12.0-15.5); dRVVT Screen 39 sec (33-44)
[2023-09-09 15:04] LABS: FACV Specimen Whole Blood; Factor V Leiden (F5) Mutation Negative
[2023-09-09 15:58] LABS: PT PCR Specimen Whole Blood; Prothrombin(F2)G20210A Variant Negative
== END 2024-03-03 23:59 | disposition home or self-care (01) ==
LOC: CCIC 09:30
PROVIDERS: Visit Provider Internal Medicine Hematology & Oncology
DX: Z09 Encounter for follow-up examination after completed treatment for conditions other than malignant neoplasm (principal); Z86.718 Personal history of other venous thrombosis and embolism; M06.9 Rheumatoid arthritis, unspecified
CPT/HCPCS: 36415; 81240; 81241; 85300; 85303; 85306; 85379; 85610; 85613; 85730; 86146; 86147; 99202; 99204; 99212; 99213